=== PATIENT | male | born 1985 | race African-American/Black ===

== ENCOUNTER 2016-10-18 18:19 | Emergency (ER) | payer OTHER ==
[~2016-10-18 18:19] MED LIST: TRAMADOL50 MG PO
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
[2016-10-18 19:28] LABS: ABSOLUTE BASOPHIL COUNT 0 /CUMM (0.0-0.2); ABSOLUTE EOSINOPHIL COUNT 0.2 /CUMM (0.0-0.7); ABSOLUTE GRANULOCYTE CT 7.8 /CUMM (1.4-6.5); ABSOLUTE LYMPH COUNT 1.7 /CUMM (1.2-3.4); ABSOLUTE MONOCYTE COUNT 0.6 /CUMM (0.10-0.60); BASOPHIL % 0.2 % (0.0-2.0); EOSINOPHIL % 2.2 % (0-5); GRANULOCYTE % 74.9 % (42.2-75.2); HEMATOCRIT 43.6 % (42-52); MEAN CORPUSCULAR HGB 29.4 PG (27.0-31.0); MEAN CORPUSCULAR HGB CONC 32.6 G/DL (33.0-37.0); MEAN CORPUSCULAR VOLUME 90.3 FL (80.0-94.0); MEAN PLATELET VOLUME 9.4 FL (7.4-10.4); PLATELET COUNT 213 /CUMM (130-400); RBC DISTRIBUTION WIDTH 13.5 % (11.5-14.5); RED BLOOD CELL CT 4.82 /CUMM (4.70-6.10); WHITE BLOOD CELL COUNT 10.5 /CUMM (4.8-10.8)
[2016-10-18 20:56] VITALS: BP 122/79
== END 2016-10-18 20:57 ==
LOC: ERH 18:19
PROVIDERS: Physician Assistant
DX: T40.601A Poisoning by unspecified narcotics, accidental (unintentional), initial encounter (principal)
CPT/HCPCS: 80307; G0480

== ENCOUNTER 2017-11-23 17:28 | Emergency (ER) | payer OTHER ==
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
[2017-11-23 18:42] LABS: ABSOLUTE BASOPHIL COUNT 0.1 /CUMM (0.0-0.2); ABSOLUTE EOSINOPHIL COUNT 0.2 /CUMM (0.0-0.7); ABSOLUTE GRANULOCYTE CT 8.7 /CUMM (1.4-6.5); ABSOLUTE LYMPH COUNT 2.8 /CUMM (1.2-3.4); ABSOLUTE MONOCYTE COUNT 1.1 /CUMM (0.10-0.60); EOSINOPHIL % 1.8 % (0-5); GRANULOCYTE % 66.8 % (42.2-75.2); HEMATOCRIT 43.6 % (42-52); MEAN CORPUSCULAR HGB 29.2 PG (27.0-31.0); MEAN CORPUSCULAR HGB CONC 32.6 G/DL (33.0-37.0); MEAN CORPUSCULAR VOLUME 89.5 FL (80.0-94.0); MEAN PLATELET VOLUME 9.3 FL (7.4-10.4); PLATELET COUNT 304 /CUMM (130-400); RBC DISTRIBUTION WIDTH 14.1 % (11.5-14.5); RED BLOOD CELL CT 4.87 /CUMM (4.70-6.10)
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
[2017-11-23 21:12] VITALS: BP 140/79
== END 2017-11-23 21:15 ==
LOC: ERH 17:28
PROVIDERS: Physician Assistant
DX: M54.2 Cervicalgia (principal); F11.10 Opioid abuse, uncomplicated; V47.5XXA Car driver injured in collision with fixed or stationary object in traffic accident, initial encounter
CPT/HCPCS: 80307; G0480